=== PATIENT | female | born 1940 | race Caucasian/White ===

== ENCOUNTER 2020-04-21 07:53 | Outpatient (CLI) | payer MEDICARE, BC | END 2020-04-21 23:59 | disposition home or self-care (01) | LOC: ROC 07:53 | PROVIDERS: ATTEND Radiology Radiation Oncology | DX: R91.8 Other nonspecific abnormal finding of lung field (principal) | CPT/HCPCS: G0463 ==

== ENCOUNTER → 2020-05-26 | Outpatient (CLI) | payer MEDICARE, BC | END | disposition home or self-care (01) | LOC: PETCFH 13:03 | PROVIDERS: ATTEND Radiology Radiation Oncology | DX: I25.10 Atherosclerotic heart disease of native coronary artery without angina pectoris (principal); D17.79 Benign lipomatous neoplasm of other sites; R91.8 Other nonspecific abnormal finding of lung field; E06.9 Thyroiditis, unspecified; N28.1 Cyst of kidney, acquired; Z90.49 Acquired absence of other specified parts of digestive tract | CPT/HCPCS: 78815; A9552 ==

== ENCOUNTER 2020-05-27 08:13 | Day surgery (SDC) | payer MEDICARE, BC ==
[~2020-05-27] VITALS: Ht 170.2 cm; Wt 78.0 kg
[2020-05-27] MEDS ORDERED: SODIUM CHLORIDE 0.9% 1,000 ML IV SCH (08:54)
[2020-05-27] MEDS ORDERED: PLEASE ENTER ALLERGIES MC SCH (09:00)
[2020-05-27] MEDS ORDERED: PLEASE ENTER HEIGHT AND WEIGHT MC SCH (09:00)
[2020-05-27 09:01] VITALS: BP 138/83
[2020-05-27] MEDS ORDERED: FENTANYL PF 100 MCG/2ML ONE (09:14)
[2020-05-27] MEDS ORDERED: NALOXONE 1 MG/ML, 2ML ONE (09:14)
[2020-05-27] MEDS ORDERED: MIDAZOLAM 1 MG/ML, 5ML ONE (09:16)
[2020-05-27] MEDS ORDERED: FLUMAZENIL 0.1 MG/1 ML, 5ML ONE (09:16)
== END 2020-05-27 13:10 | disposition home or self-care (01) ==
LOC: OUT 08:13
PROVIDERS: ATTEND Radiology Radiation Oncology
DX: R91.8 Other nonspecific abnormal finding of lung field (principal); C34.31 Malignant neoplasm of lower lobe, right bronchus or lung; F41.9 Anxiety disorder, unspecified; I10 Essential (primary) hypertension; I25.10 Atherosclerotic heart disease of native coronary artery without angina pectoris; I25.2 Old myocardial infarction; F17.210 Nicotine dependence, cigarettes, uncomplicated; Z88.5 Allergy status to narcotic agent; Z72.89 Other problems related to lifestyle
CPT/HCPCS: 32405; 71045; 77012; 88305; 88333; 88334; 88341; 88342; 99156; 99157; J2250; J3010; J2310

== ENCOUNTER 2020-11-16 05:27 | Day surgery (SDC) | payer MEDICARE, BC ==
[~2020-11-16] VITALS: Ht 170.2 cm; Wt 75.2 kg
[2020-11-16] MEDS ORDERED: OXYC-302 PO (06:09)
[2020-11-16] MEDS ORDERED: METH500T7 PO (06:09)
[2020-11-16] MEDS ORDERED: DIAZ2TAB PO (06:09)
[2020-11-16] MEDS ORDERED: ACET325T14 PO (06:09)
[2020-11-16] MEDS ORDERED: CHLORHEXIDINE 15 ML UDC ONE (06:14)
[2020-11-16] MEDS ORDERED: LACTATED RINGERS 1,000 ML IV SCH (06:30)
[2020-11-16] MEDS ORDERED: CHLORHEXIDINE 15 ML UDC MM ONE (06:30)
[2020-11-16 06:50] VITALS: BP 146/89
[2020-11-16] MEDS ORDERED: LEVOTHYROXINE PO (07:04)
[2020-11-16] MEDS ORDERED: SCOPOLAMINE 1MG PATCH TD STA (07:15)
[2020-11-16] MEDS ORDERED: MIDAZOLAM 1 MG/ML, 2ML ONE (07:17)
[2020-11-16] MEDS ORDERED: FENTANYL PF 250 MCG/5ML ONE ×2 (07:17→08:10)
[2020-11-16] MEDS ORDERED: SCOPOLAMINE 1MG PATCH TD ONE (07:18)
[2020-11-16] MEDS ORDERED: THROMBIN 20,000 UNIT VIAL TP ONE (07:22)
[2020-11-16] MEDS ORDERED: EPINEPHRINE 1 MG/ML, 1ML ONE (07:22)
[2020-11-16] MEDS ORDERED: BACITRACIN 50,000 UNIT ONE (07:22)
[2020-11-16] MEDS ORDERED: BUPIVACAINE/PF 0.25% ONE (07:25)
[2020-11-16] MEDS ORDERED: SUCCINYLCHOLINE 20 MG/ML, 10ML ONE (07:32)
[2020-11-16] MEDS ORDERED: PROPOFOL 10 MG/ML, 20ML ONE (07:32)
[2020-11-16] MEDS ORDERED: ROCURONIUM 10 MG/ML,10ML ONE (07:32)
[2020-11-16] MEDS ORDERED: CEFAZOLIN 1,000 MG ONE (07:32)
[2020-11-16] MEDS ORDERED: ONDANSETRON 2MG/ML, 2ML ONE (07:32)
[2020-11-16 07:57] LABS: INTERNATIONAL NORMALIZED RATIO 1.04 (0.93-1.1)
[2020-11-16] MEDS ORDERED: OXYcodone 5 MG/5 ML ORAL.SOL UDC ONE (09:28)
[2020-11-16] MEDS ORDERED: METOCLOPRAMIDE 5 MG/ML, 2ML IV PRN (09:30)
[2020-11-16] MEDS ORDERED: HYDROmorphone 1 MG/ML, 1ML INJ IV PRN (09:30)
[2020-11-16] MEDS ORDERED: OXYcodone 5 MG/5 ML ORAL.SOL UDC PO PRN (09:30)
[2020-11-16] MEDS ORDERED: ALBUTEROL SULFATE 2.5 MG/3 ML NPPB PRN (09:30)
[2020-11-16] MEDS ORDERED: PROMETHAZINE 25 MG/ML, 1ML IV PRN (09:30)
[2020-11-16] MEDS ORDERED: KETOROLAC 30 MG/1 ML IV PRN (09:30)
[2020-11-16] MEDS ORDERED: LABETALOL 5MG/ML, 20ML IV PRN (09:30)
[2020-11-16] MEDS ORDERED: FENTANYL PF 100 MCG/2ML IV PRN (09:30)
[2020-11-16] MEDS ORDERED: hydrALAzine 20 MG/ML, 1ML IV PRN (09:30)
[2020-11-16] MEDS ORDERED: MEPERIDINE/PF 25MG/0.5ML IVPush PRN (09:30)
[2020-11-16] MEDS ORDERED: METHOCARBAMOL 1,000 MG in DEXTROSE 5% 100 ML IV ONE (09:30)
[2020-11-16] MEDS ORDERED: DIAZEPAM 5 MG/ML, 2ML IV PRN ×2 (09:30)
[2020-11-16] MEDS ORDERED: ONDANSETRON 2MG/ML, 2ML IVPush PRN (09:30)
[2020-11-16] MEDS ORDERED: FENTANYL PF 100 MCG/2ML ONE (09:38)
[2020-11-16] MEDS ORDERED: HYDROmorphone 1 MG/ML, 1ML INJ ONE (09:48)
[2020-11-16] MEDS ORDERED: methylPREDNISolone *ACETATE* 40 MG/ML IM ONE (12:00)
== END 2020-11-16 15:10 | disposition home or self-care (01) ==
LOC: OUT 05:27 → EDSTATUS 07:30 → OUT 15:10
PROVIDERS: ATTEND Neurological Surgery
DX: M50.022 Cervical disc disorder at C5-C6 level with myelopathy (principal); M48.02 Spinal stenosis, cervical region; M47.892 Other spondylosis, cervical region; M25.78 Osteophyte, vertebrae; I10 Essential (primary) hypertension; F17.210 Nicotine dependence, cigarettes, uncomplicated; Z79.01 Long term (current) use of anticoagulants; Z79.890 Hormone replacement therapy; Z79.899 Other long term (current) drug therapy; Z85.118 Personal history of other malignant neoplasm of bronchus and lung
CPT/HCPCS: 20930; 20936; 22551; 22845; 22853; 36415; 72040; 85610; 85730; 86850; 86900; 86923; C1713; C1762; C1889; J0171; J0330; J0690; J1170; J1885; J2250; J2405; J2704; J2800; J3010; J7120

== ENCOUNTER 2021-01-05 07:54 | Outpatient (CLI) | payer MEDICARE, BC ==
[~2021-01-05 07:54] MED LIST: ACET325T14 PO; DIAZ2TAB PO; LEVOTHYROXINE PO; METH-639 PO; OXYC1TAB14 PO
== END 2021-01-05 23:59 | disposition home or self-care (01) ==
LOC: ROC 07:54
PROVIDERS: ATTEND Radiology Radiation Oncology
DX: Z08 Encounter for follow-up examination after completed treatment for malignant neoplasm (principal); Z85.118 Personal history of other malignant neoplasm of bronchus and lung; I10 Essential (primary) hypertension; Z79.01 Long term (current) use of anticoagulants; Z87.891 Personal history of nicotine dependence; Z79.899 Other long term (current) drug therapy
CPT/HCPCS: G2012; G2251